=== PATIENT | male | born 1970 | race Two or more races ===

== ENCOUNTER → 2017-09-05 | Outpatient (CLI) | payer MEDICARE ==
[2017-09-05 11:31] LABS: CHOLESTEROL 157.06 mg/dL (0-200); Direct HDL 69 mg/dL (>40); TRIGLYCERIDES 57 mg/dL (<150)
[2017-09-05 11:39] LABS: DIRECT LDL 81 mg/dL (<100)
[2017-09-05 11:45] LABS: C-REACTIVE PROTEIN < 5.0 mg/L (<10.0)
== END ==
LOC: OD 10:11
PROVIDERS: ATTEND Internal Medicine Geriatric Medicine
DX: E10.65 Type 1 diabetes mellitus with hyperglycemia (principal); M19.90 Unspecified osteoarthritis, unspecified site
CPT/HCPCS: 36415; 80061; 85652; 86038; 86140; 86430

== ENCOUNTER 2018-03-17 11:12 | Emergency (ER) | payer MEDICARE ==
[2018-03-17] MEDS ORDERED: NORMAL SALINE 1000 ML 1,000 ML IV ONE (11:31)
[2018-03-17] MEDS ORDERED: VANCOMYCIN HCL INJ 1000 MG VIAL IV ONE (11:31)
[2018-03-17] MEDS ORDERED: HYDROMORPHONE HCL INJ/PF 2 MG/ML AMPULE IV ONE (11:32)
--- NOTE | 2018-03-17 11:47 | ER Document Report ---
ED Medical Screen (RME) - General Chief Complaint: Knee Pain Stated Complaint: KNEE PAIN Time Seen by Provider: 03/17/18 11:28 Mode of Arrival: Wheelchair Information source: Patient Notes: 47-year-old diabetic male presents with complaints of right knee pain. Patient notes couple weeks ago he got some superficial cuts in that area swelled up this morning was tender I have greeted and performed a rapid initial assessment of this patient. A comprehensive ED assessment and evaluation of the patient, analysis of test results and completion of the medical decision making process will be conducted by additional ED providers. PHYSICAL EXAMINATION: GENERAL: Well-appearing, well-nourished and in no acute distress. HEAD: Atraumatic, normocephalic. EYES: Pupils equal round extraocular movements intact, conjunctiva are normal. ENT: Nares patent NECK: Normal range of motion LUNGS: No respiratory distress Musculoskeletal: Normal range of motion NEUROLOGICAL: Normal speech, normal gait. PSYCH: Normal mood, normal affect. SKIN: Abscess just inferior to the right knee with streaking TRAVEL OUTSIDE OF THE [place] IN LAST 30 DAYS: No Physical Exam - Vital signs Vitals: Temp Pulse Resp BP Pulse Ox 98.7 F 66 16 125/71 98 03/17/18 11:20 03/17/18 11:20 03/17/18 11:20 03/17/18 11:20 03/17/18 11:20 Course - Vital Signs Vital signs: Temp Pulse Resp BP Pulse Ox 98.7 F 66 16 125/71 98 03/17/18 11:20 03/17/18 11:20 03/17/18 11:20 03/17/18 11:20 03/17/18 11:20 Doctor's Discharge - Discharge Referrals: EARNESTINE GARVEY MD [Primary Care Provider] - Follow up as needed
[2018-03-17 12:37] LABS: ABSOLUTE BASOPHILS # (AUTO) 0.1 10^3/uL (0.0-0.2); ABSOLUTE EOSINOPHILS # (AUTO) 0.1 10^3/uL (0.0-0.6); ABSOLUTE LYMPHOCYTES (AUTO) 1.2 10^3/uL (0.5-4.7); ABSOLUTE MONOCYTES (AUTO) 0.8 10^3/uL (0.1-1.4); ABSOLUTE NEUT (AUTO) 6.1 10^3/uL (1.7-8.2); BASOPHILS % (AUTO) 0.9 % (0-2); EOSINOPHILS % (AUTO) 1.2 % (0-6); HEMATOCRIT 41.6 % (37.9-51.0); HEMOGLOBIN 14.4 g/dL (13.5-17.0); LYMPHOCYTES % (AUTO) 14.1 % (13-45); MEAN CORPUSCULAR HGB CONC 34.6 g/dL (32.0-36.0); MEAN CORPUSCULAR VOLUME 93 fl (80-97); MONOCYTES % (AUTO) 10.1 % (3-13); PLATELET COUNT 182 10^3/uL (150-450); RED BLOOD COUNT 4.49 10^6/uL (4.35-5.55); RED CELL DISTRIBUTION WIDTH 12.4 % (11.5-14.0); SEGMENTED NEUTROPHILS % (AUTO) 73.7 % (42-78); TOTAL CELLS COUNTED % (AUTO) 100 %; WHITE BLOOD COUNT 8.3 10^3/uL (4.0-10.5)
[2018-03-17 12:55] LABS: ALANINE AMINOTRANSFERASE 32 U/L (21-72); ALBUMIN 3.8 g/dL (3.5-5.0); ALKALINE PHOSPHATASE 81 U/L (38-126); ANION GAP 7 (5-19); ASPARTATE AMINO TRANSFERASE 22 U/L (17-59); BILIRUBIN,DIRECT 0.2 mg/dL (0.0-0.4); BILIRUBIN,TOTAL 2.1 mg/dL (0.2-1.3); BLOOD UREA NITROGEN 23 mg/dL (7-20); CALCIUM 8.9 mg/dL (8.4-10.2); CARBON DIOXIDE 31 mmol/L (22-30); CHLORIDE 101 mmol/L (98-107); GLUCOSE 223 mg/dL (75-110); POTASSIUM 4.7 mmol/L (3.6-5.0); SODIUM 139.4 mmol/L (137-145); TOTAL PROTEIN 6.4 g/dL (6.3-8.2)
[2018-03-17] MEDS ORDERED: SULFAMETHOXAZOLE/TRIMETHOPRIM 800-160 MG TABLET PO ONE ×2 (13:43→13:44)
--- NOTE | 2018-03-17 13:53 | ER Document Report ---
ED General - General Chief Complaint: Knee Pain Stated Complaint: KNEE PAIN Time Seen by Provider: 03/17/18 11:28 Mode of Arrival: Wheelchair TRAVEL OUTSIDE OF THE [place] IN LAST 30 DAYS: No - HPI Patient complains to provider of: Right knee pain redness Notes: Patient coming in for evaluation of right knee pain and redness. Patient states many weeks ago that was scratched by multiple bushes now has redness and erythema of the anterior vazquez on the right side going up to his knee. Patient states that the pain in his knee however still is able to ambulate. Patient denies any fevers and is afebrile here. Patient denies any recent antibiotics - Related Data Allergies/Adverse Reactions: No Known Allergies Allergy (Verified 03/17/18 11:35) Past Medical History - General Information source: Patient - Social History Smoking Status: Former Smoker Chew tobacco use (# tins/day): No Frequency of alcohol use: None Drug Abuse: None Family History: Reviewed & Not Pertinent Patient has suicidal ideation: No Patient has homicidal ideation: No - Past Medical History Cardiac Medical History: Reports: Hx Hypertension Neurological Medical History: Reports: Hx Seizures Endocrine Medical History: Reports: Hx Diabetes Mellitus Type 1 Renal/ Medical History: Reports: Hx Kidney Stones. Denies: Hx Peritoneal Dialysis Past Surgical History: Reports: Hx Orthopedic Surgery - right foot Review of Systems - Review of Systems Constitutional: No symptoms reported EENT: No symptoms reported Cardiovascular: No symptoms reported Respiratory: No symptoms reported Gastrointestinal: No symptoms reported Genitourinary: No symptoms reported Male Genitourinary: No symptoms reported Musculoskeletal: Other - knee pain Skin: No symptoms reported Hematologic/Lymphatic: No symptoms reported Neurological/Psychological: No symptoms reported Physical Exam - Vital signs Vitals: Temp Pulse Resp BP Pulse Ox 98.7 F 66 16 125/71 98 03/17/18 11:20 03/17/18 11:20 03/17/18 11:20 03/17/18 11:20 03/17/18 11:20 Interpretation: Normal - General General appearance: Appears well, Alert - HEENT Head: Normocephalic, Atraumatic Eyes: Normal Pupils: PERRL - Respiratory Respiratory status: No respiratory distress Chest status: Nontender Breath sounds: Normal Chest palpation: Normal - Cardiovascular Rhythm: Regular Heart sounds: Normal auscultation Murmur: No - Abdominal Inspection: Normal Distension: No distension Bowel sounds: Normal Tenderness: Nontender Organomegaly: No organomegaly - Back Back: Normal, Nontender - Extremities General upper extremity: Normal inspection, Nontender, Normal color, Normal ROM , Normal temperature General lower extremity: Normal ROM, Normal temperature, Normal weight bearing. No: Normal inspection - Redness and erythema of the anterior vazquez of the right leg with multiple small abrasions covered by Band-Aids. Patient the patella tendon and the bursa area does have a little bit of swelling with a bolus of any penetration injury there is no fluctuance in the ultrasound area is no signs of fluid collection no signs of abscess. Patient does have range of motion of the knee is only tender at the patella tendon., Dayday's sign - Neurological Neuro grossly intact: Yes Cognition: Normal Orientation: AAOx4 Selina Coma Scale Eye Opening: Spontaneous [place] Coma Scale Verbal: Oriented Selina Coma Scale Motor: Obeys Commands [place] Coma Scale Total: 15 Speech: Normal Motor strength normal: LUE, RUE, LLE, RLE Sensory: Normal - Psychological Associated symptoms: Normal affect, Normal mood - Skin Skin Temperature: Warm Skin Moisture: Dry Skin Color: Normal Course - Re-evaluation Re-evalutation: 03/17/18 16:30 No white count very minimal elevation in ESR and CRP. Not really consistent with any, septic joint more likely underlying cellulitis. Patient will be given Bactrim for treatment encouraged follow-up with his primary care physician in the next 3-5 days return to ER symptoms worsen. - Vital Signs Vital signs: Temp Pulse Resp BP Pulse Ox 98.2 F 54 L 18 109/59 L 99 03/17/18 14:41 03/17/18 14:41 03/17/18 14:41 03/17/18 14:41 03/17/18 14:41 - Laboratory Result Diagrams: 03/17/18 12:20 03/17/18 12:20 Laboratory results interpreted by me: 03/17/18 03/17/18 03/17/18 12:20 12:20 12:20 ESR 41 H Carbon Dioxide 31 H BUN 23 H Glucose 223 H Total Bilirubin 2.1 H C-Reactive Protein 23.4 H Discharge - Discharge Clinical Impression: Cellulitis of right leg Condition: Good Disposition: HOME, SELF-CARE Instructions: Cellulitis ([facility]) Additional Instructions: Your evaluation today reveals a infection of the skin of the right leg. Ultrasound does not show any abscess formation. Laboratory studies not show an infection at this time would require antibiotics through an IV. Do believe that we can discharge you home on Bactrim 2 pills twice a day. Please take pain medication as prescribed follow-up with your primary care physician in the next 3-5 days. Would recommend calling his office on Sunday. Prescriptions: Sulfamethoxazole/Trimethoprim [Bactrim Ds Tablet] 2 each PO BID #40 tablet Tramadol HCl [Ultram 50 mg Tablet] 50 mg PO ASDIR PRN #20 tablet PRN Reason: Referrals: EARNESTINE GARVEY MD [Primary Care Provider] - Follow up in 3-5 days
[2018-03-17 14:49] VITALS: BP 109/59
== END 2018-03-17 14:48 | disposition home or self-care (01) ==
LOC: ER 11:12
DX: L03.115 Cellulitis of right lower limb (principal); M25.561 Pain in right knee; Z87.891 Personal history of nicotine dependence; I10 Essential (primary) hypertension; E10.9 Type 1 diabetes mellitus without complications
CPT/HCPCS: 99283; 96375; 96365; 36415; 87040; 85025; 85652; 86140; 80053; J1170; A9270; J7030; J3370

== ENCOUNTER 2018-05-20 10:08 | Emergency (ER) | payer MEDICARE ==
[2018-05-20] MEDS ORDERED: LIDOCAINE 1%/EPINEPHRINE INJ 20 ML VIAL INJ ONE (10:44)
--- NOTE | 2018-05-20 10:51 | ER Document Report ---
ED Extremity Problem, Lower - General Chief Complaint: Foot Injury Stated Complaint: RIGHT FOOT PAIN Time Seen by Provider: 05/20/18 10:44 TRAVEL OUTSIDE OF THE [place] IN LAST 30 DAYS: No - HPI Patient complains to provider of: Other - Pain and swelling in the right foot which developed over the last 2 days with associated puss draining from it today. He notes he has long-standing history of diabetes which is fairly well- controlled with bad peripheral neuropathy getting regular foot checks. He does have a Charcot foot which is known. - Related Data Allergies/Adverse Reactions: No Known Allergies Allergy (Verified 05/20/18 10:13) Past Medical History - General Information source: Patient, Relative - Social History Smoking Status: Never Smoker Chew tobacco use (# tins/day): No Frequency of alcohol use: None Drug Abuse: None Family History: Reviewed & Not Pertinent Patient has suicidal ideation: No Patient has homicidal ideation: No - Past Medical History Cardiac Medical History: Reports: Hx Hypertension Neurological Medical History: Reports: Hx Seizures Endocrine Medical History: Reports: Hx Diabetes Mellitus Type 1 Renal/ Medical History: Reports: Hx Kidney Stones. Denies: Hx Peritoneal Dialysis Past Surgical History: Reports: Hx Orthopedic Surgery - right foot Review of Systems - Review of Systems -: Yes All other systems reviewed and negative Physical Exam - Vital signs Vitals: Temp Pulse Resp BP Pulse Ox 98.0 F 63 12 120/69 100 05/20/18 10:13 05/20/18 10:13 05/20/18 10:13 05/20/18 10:13 05/20/18 10:13 - General General appearance: Appears well In distress: None - HEENT Head: Normocephalic Eyes: Normal Conjunctiva: Normal Cornea: Normal Extraocular movements intact: Yes Eyelashes: Normal Pupils: PERRL - Respiratory Respiratory status: No respiratory distress Chest status: Nontender Breath sounds: Normal Chest palpation: Normal - Cardiovascular Rhythm: Regular Heart sounds: Normal auscultation Murmur: No - Abdominal Inspection: Normal Distension: No distension Tenderness: Nontender - Back Back: Normal - Extremities General upper extremity: Normal inspection, Nontender, Normal strength, Normal temperature General lower extremity: Other - The right foot demonstrates an erythematous modest area of swelling along the lateral aspect on the plantar aspect of the foot with a small punctate wound without any obvious fluctuance or purulent drainage no obvious foreign body - Neurological Neuro grossly intact: Yes Cognition: Normal Orientation: AAOx4 Selina Coma Scale Eye Opening: Spontaneous [place] Coma Scale Verbal: Oriented Selina Coma Scale Motor: Obeys Commands Selina Coma Scale Total: 15 Speech: Normal Cranial nerves: Normal - Psychological Associated symptoms: Normal affect Course - Re-evaluation Re-evalutation: 05/20/18 19:54 47-year-old male presents for evaluation of pain and swelling along lateral aspect of the right foot. On examination the patient does have an erythematous area with a single punctate lesion in the middle of the foot which previously had been draining some thick purulent per a Photo on his 's cell phone. There is some concern that this may represent a puncture wound, or a retained foreign body. Bedside ultrasound demonstrates that there may be a small area with an irregularity consistent with a possible foreign body. We will probe area and ascertain whether or not there is possible foreign body. Examination wound well cleaned, probed area for foreign body, felt some grit no obvious foreign body. Obtained x-ray of the foot for possible foreign body, no obvious palpable or foreign body identified on x-ray. Given that the patient does have a puncture wound, did ask whether or not he has had a recent tetanus shot he notes that his last tetanus shot was well within the last 5 years. Given that his last tetanus shot is within the last 5 years will defer administration at this time, given that he does have a puncture wound on the foot with diabetes and bad peripheral neuropathy will plan for treatment with Keflex presumptively for antibiotic prophylaxis. Patient to be discharged with return precautions encouraged follow-up for foot examination the next 4 days. He is in agreement with this course of action at this time. - Vital Signs Vital signs: Temp Pulse Resp BP Pulse Ox 98.4 F 56 L 16 117/66 98 05/20/18 13:33 05/20/18 13:33 05/20/18 13:33 05/20/18 13:33 05/20/18 13:33 Discharge - Discharge Clinical Impression: Foot pain, right Penetrating foot wound Qualifiers: Encounter type: initial encounter Laterality: right Qualified Code(s): S91.331A - Puncture wound without foreign body, right foot, initial encounter Condition: Good Disposition: HOME, SELF-CARE Instructions: Cephalexin ([facility]), Foot or Leg Ulcer ([facility]) Additional Instructions: You were seen today in the emergency department for the ulcer in your foot. You had an evaluation including a physical exam as well as x-rays of the foot. It did not show any obvious foreign body there, it is unlikely that there is a stone in your foot. I did attempt to find one, was unable to retrieve it. Use the antibiotic prescribed to you as directed over the next 10 days. See a doctor this week for a repeated foot examination. Use warm compresses twice a day over this area of swelling on the foot. Return for any worsening fevers chills swelling in the foot or redness which extends past the ankle. Prescriptions: Cephalexin Monohydrate [Keflex 500 mg Capsule] 500 mg PO Q6H 10 Days #40 capsule Referrals: EARNESTINE GARVEY MD [Primary Care Provider] - Follow up as needed
--- NOTE | 2018-05-20 12:45 | RADIOLOGY REPORT (SQ) ---
EXAM DESCRIPTION: FOOT RIGHT 2 VIEWS COMPLETED DATE/TIME: 05/20/2018 12:21 pm REASON FOR STUDY: concern for foreign body in the right foot lateral COMPARISON: None. NUMBER OF VIEWS: Two views right foot. LIMITATIONS: None. FINDINGS: Osteopenic. Soft tissue swelling along the plantar lateral aspect of the foot. No underl ophelia radiopaque foreign body or gas collections appreciated. No fracture or worrisome bone lesion. OTHER: Pes planus and degenerative changes in the midfoot. IMPRESSION: Soft tissue swelling at the site of reported wound. No radiopaque foreign body identifi ed. TECHNICAL DOCUMENTATION: JOB ID: [id number] Reading location - IP/workstation name: [email or web address]
[2018-05-20 13:34] VITALS: BP 117/66
== END 2018-05-20 13:33 | disposition home or self-care (01) ==
LOC: ER 10:08
DX: S91.331A Puncture wound without foreign body, right foot, initial encounter (principal); M79.671 Pain in right foot; M79.89 Other specified soft tissue disorders; X58.XXXA Exposure to other specified factors, initial encounter; E10.42 Type 1 diabetes mellitus with diabetic polyneuropathy; I10 Essential (primary) hypertension
CPT/HCPCS: 99283; 73620; J3490